=== PATIENT | male | born 1975 | race Caucasian/White ===

== ENCOUNTER 2021-04-16 10:27 | Outpatient (CLI) | payer SELFPAY ==
--- NOTE | 2021-04-16 10:00 | CT_ITS ---
WS: [id number] CT ABDOMEN AND PELVIS WITH CONTRAST HISTORY: K46.0 - Unspecified abdominal hernia with obstruction, with LEFT lower quadrant pain and bad nausea. TECHNIQUE: Imaging performed of the abdomen and pelvis with IV contrast. Single phase imaging of the abdomen. Coronal and sagittal reformats are submitted. All CT scans at [facility] use at least one of these dose optimization techniques: automated exposure control; mA and/or kV adjustment per patient size (includes targeted exams where dose is matched to clinical indication); or iterativ e reconstruction. IV CONTRAST: Omnipaque 300; 95 mL IV. Oral contrast: Yes. DLP: 1183.34 mGycm COMPARISON: None available. Lower thorax: Lung bases are clear. Heart is normal size. Small hiatal hernia. Liver/biliary system: Normal size with no intrahepatic dilatation. Gallbladder: Normal. No gallstones or wall thickening. No pericholecystic fluid. Pancreas: Normal size pancreas and pancreatic duct. No adjacent inflammation. Spleen: Normal size spleen. No mass or infarct. Adrenal glands: Normal. Right kidney: Subcentimeter cortical low-attenuation masses are too small to characterize. No obstruc tion. Left kidney: Too small to characterize subcortical hypodensities. Aorta: Normal. A few splenic varices are noted. Lymphadenopathy: None. Free fluid: None. GI tract: Prior appendectomy. There is moderate fecal retention and increased air throughout the colo n. Short segment transition site in the distal descending colon with adjacent inflammation and asymme tric wall thickening. Moderate narrowing of the lumen. Due to the shape of this lesion neoplasm needs to be excluded. There are adjacent diverticula also. No perforation. This abnormality extends over a segment 3.4 cm. There are adjacent more distal diverticula in the sigmoid. Abdominal wall: Small umbilical hernia. Pelvis: Surgical clips at the inguinal region from prior hernia repair. Prostate gland central calcif ications. Bones: Unremarkable. CT/CT abdomen pelvis w con* [id number] IMPRESSION: 1. Short segment distal colon luminal narrowing. Moderate pericolonic inflamma tion and a few diverticula. Based upon the shape of the lesion this may be a ne oplastic apple core lesion. There are adjacent diverticula. Focal diverticuliti s not excluded. Recommend colonoscopy. No perforation or abscess. 2. Additional diverticulosis in the sigmoid colon. 3. No perforation.
[2021-04-16] MEDS: iohexol 300 mg/mL 50 mL Btl PO (10:48)
[2021-04-16] MEDS: iohexol 300 mg/mL 100 mL Btl IV (12:15)
== END 2021-04-16 10:28 | disposition home or self-care (01) ==
PROVIDERS: PCP Nurse Practitioner Family; Visit Provider Nurse Practitioner Family
DX: K46.0 Unspecified abdominal hernia with obstruction, without gangrene (principal); K57.30 Diverticulosis of large intestine without perforation or abscess without bleeding
CPT/HCPCS: 74177; Q9967

== ENCOUNTER 2021-04-16 15:27 | Observation (INO) | payer SELFPAY ==
[2021-04-16 16:13] VITALS: BMI 24.3
[2021-04-16 17:56] VITALS: RESP 18
[2021-04-16] MEDS: morphine 4 mg/mL SDV 1 mL 2 MG IVP (17:56)
[2021-04-16] MEDS: ciprofloxacin 400 MG/200 ML PREMIX 200 MG IV (18:04)
[2021-04-16] MEDS: sodium chloride 0.9% 1,000 ML 125 ML IV (18:04)
[2021-04-16 18:20] VITALS: BP 119/69; PULSE 96; RESP 18; TEMP 37.1; O2SAT 92
[2021-04-16 18:33] LABS: Basophils % 0.2 %; Eosinophils # 0.2 10^3/uL (0.0-0.8); Eosinophils % 1.2 %; Hematocrit 50.4 % (42.0-52.0); Hemoglobin 16.6 g/dL (11.7-16.6); Lymphocytes # 1.1 10^3/uL (0.8-4.8); Lymphocytes % 6.1 %; Mean Corpuscular HGB Conc 32.9 g/dL (30.0-36.0); Mean Corpuscular Hemoglobin 30.7 pg (28.0-34.0); Mean Corpuscular Volume 93.2 fL (80-94); Mean Platelet Volume 9.7 fL (7.4-10.4); Monocytes % 5.7 %; Neutrophils # 15.56 10^3/uL (1.8-7.7); Neutrophils % 86.2 %; Nucleated Red Blood Cells % 0 %; Platelet Count 184 10^3/cmm (130-400); Red Blood Count 5.41 10^6/uL (4.1-5.3); Red Cell Distribution Width 13.6 % (12.1-15.1); White Blood Count 18.1 10^3/uL (4.0-10.0)
[2021-04-16 18:57] LABS: Alanine Aminotransferase 21 U/L (0-41); Alkaline Phosphatase 69 IU/L (40-130); Anion Gap 13.3 (5-19); Aspartate Amino Transferase 17 U/L (0-40); Blood Urea Nitrogen 13 mg/dL (6-20); Calcium 8.5 mg/dL (8.5-10.5); Carbon Dioxide 24 mmol/L (22-29); Chloride 99 mmol/L (98-107); Glomerular Filtration Rate 90.4 mL/min (90-130); Glucose 108 mg/dL (65-115); Osmolality Calculated 275 mOsm/kg (285-295); Potassium 4.3 mmol/L (3.5-5.1); Sodium 132 mmol/L (136-145); Total Bilirubin 0.7 mg/dL (0.15-1.2)
[2021-04-16 20:13] LABS: Carcinoembryonic Antigen 1.6 ng/mL (0.0-4.7)
[2021-04-16 20:35] VITALS: BP 143/76; PULSE 101; RESP 17; TEMP 37.2; O2SAT 93
[2021-04-16] MEDS: metroNIDAZOLE IV 500 MG/100 ML PREMIX 100 MG IV (20:46)
[2021-04-16] MEDS: magnesium citrate Btl 296 mL PO (20:47)
[2021-04-16] MEDS: scopolamine 1.5 Patch 1 PATCH TRANSDERMA (20:55)
[2021-04-17] VITALS (10 sets, daily range): BP systolic 93–125; BP diastolic 59–82; PULSE 88–98; RESP 14–18; TEMP 36.3–37.2; O2SAT 92–96
[2021-04-17] MEDS: metroNIDAZOLE IV 500 MG/100 ML PREMIX 100 MG IV ×3 (03:49→20:25)
[2021-04-17] MEDS: sodium chloride 0.9% 1,000 ML 125 ML IV ×3 (03:49→23:53)
[2021-04-17] MEDS: ciprofloxacin 400 MG/200 ML PREMIX 200 MG IV ×2 (04:46→16:52)
--- NOTE | 2021-04-17 09:30 | P.ANESASSM_ITS ---
Pre-Anesthetic Assessment Pre-Anesthetic Assessment: Height/Weight: Height 1.85 m Weight 83.733 kg Temp Pulse Resp BP Pulse Ox 99.0 F 96 14 93/59 93 04/17/21 08:22 04/17/21 08:22 04/17/21 08:22 04/17/21 08:22 04/17/21 08:22 Preop Diagnosis: abdominal pain Proposed Procedure: Operation Date: 04/17/21 11:00 Proposed Procedures p FLEX Sigmoidoscopy(Not Applicable) - John Avendano MD Was Beta Heri taken within 24 hours: N/A Was Clonidine taken within 24 hours: N/A Last Intake: 00:00 Exam: Pre-Anes Outpt Exam: alert, oriented x 3, clear to auscultation bilaterally and regular rate & rhythm Airway: Submandibular: WNL Cervical ROM: WNL MP: 2 History/ROS: No significant history except as noted and No significant c omplaints Pulmonary: Pulmonary: None reported CV/HEM: CV/HEM: None reported : : None reported Hepatic: Hepatic: None reported GI: Comments: abdominal pain Metabolic: Metabolic: None reported Musc/skel: Musc/skel: None reported Neuropsych: Neuropsych: None reported Anesthetic Plan: ASA status: 2 Anesthesia: MAC Risk of > 500 ml blood loss (7ml/kg in children): No Meds/Allergies 2 Current Medications: Current Medications Generic Name Dose Route Start Last Admin Trade Name Freq PRN Reason Stop Dose Admin Sodium Chloride 1,000 mls @ 125 m ls/hr 04/16/21 16:45 04/17/21 03:49 Sodium Chloride 0.9% IV 125 mls/hr .Q8H MARIEL Administration Ciprofloxacin/Dext jin 400 mg in 200 mls @ 200 mls/hr 04/16/21 16:45 04/17/21 07:13 Cipro IV Infused Q12H MARIEL Infusion Protocol Metronidazole 500 mg in 100 mls @ 100 mls/hr 04/16/21 16:45 04/17/21 04:47 Flagyl Iv IV Infused Q8H MARIEL Infusion Protocol Morphine Sulfate 2 mg 04/16/21 16:33 04/16/21 17:56 Morphine 4 Mg/Ml Sdv 1 Ml IVP 2 mg Q1H PRN Administration SEVERE PAIN PFSH Anesthesia PFSH: Medical History Acute diverticulitis of intestine Surgical History History of right inguinal hernia repair Hx of appendectomy Social History Smoking and tobacco status: current every day smoker Lives independently: Yes Data Anesthesia CBC & Chem 7: 04/16/21 18:20 04/16/21 18:20 Other Labs: Laboratory Results - last 48 hr 04/16/21 04/16/21 18:20 18:20 WBC 18.1 H RBC 5.41 H Hgb 16.6 Hct 50.4 MCV 93.2 MCH 30.7 MCHC 32.9 RDW 13.6 Plt Count 184 MPV 9.7 Neut % (Auto) 86.2 Lymph % (Auto) 6.1 Toole % (Auto) 5.7 Eos % (Auto) 1.2 Baso % (Auto) 0.2 Neut # (Auto) 15.56 H Lymph # (Auto) 1.1 Toole # (Auto) 1.0 H Eos # (Auto) 0.2 Baso # (Auto) 0.0 Nucleated RBC % (auto) 0 Nucleated RBCs # 0.0 Sodium 132 L Potassium 4.3 Chloride 99 Carbon Dioxide 24 Anion Gap 13.3 BUN 13 Creatinine 0.9 GFR Calculation 90.4 Glucose 108 Calculated Osmolality 275 L Calcium 8.5 Total Bilirubin 0.7 AST 17 ALT 21 Alkaline Phosphatase 69 Total Protein 7.0 Albumin 4.0 Globulin 3.0 Carcinoembryonic Ag 1.6 Cardiac Studies: No Data to Display
[2021-04-17] MEDS: sodium chloride 0.9% 1,000 ML 30 ML IV (09:45)
--- NOTE | 2021-04-17 14:52 | ANE.PACU2 ---
Inpatient post-anesthesia follow up: Airway intact: Yes Vital signs: Temperature 97.3 F Pulse Rate 92 Respiratory Rate 16 Blood Pressure 109/64 Pulse Oximetry 95 Oxygen Delivery Me thod Room Air Oxygen Flow Rate Fraction of Inspir ed Oxygen Hydration adequate: Yes Nausea and vomiting: No Pain level: 1 Mental status: Baseline
[2021-04-18 02:55] LABS: Basophils % 0.5 %; Eosinophils # 0.3 10^3/uL (0.0-0.8); Eosinophils % 4.2 %; Hematocrit 49.5 % (42.0-52.0); Lymphocytes # 1.2 10^3/uL (0.8-4.8); Lymphocytes % 15.6 %; Mean Corpuscular HGB Conc 32.3 g/dL (30.0-36.0); Mean Corpuscular Hemoglobin 30.8 pg (28.0-34.0); Mean Corpuscular Volume 95.2 fL (80-94); Mean Platelet Volume 9.7 fL (7.4-10.4); Monocytes # 0.6 10^3/uL (0.2-0.9); Monocytes % 7.4 %; Neutrophils % 71.4 %; Nucleated Red Blood Cells % 0 %; Platelet Count 163 10^3/cmm (130-400); Red Cell Distribution Width 13.5 % (12.1-15.1); White Blood Count 7.4 10^3/uL (4.0-10.0)
[2021-04-18] MEDS: metroNIDAZOLE IV 500 MG/100 ML PREMIX 100 MG IV (03:10)
[2021-04-18 03:16] LABS: Anion Gap 10.4 (5-19); Blood Urea Nitrogen 9 mg/dL (6-20); Calcium 8.3 mg/dL (8.5-10.5); Carbon Dioxide 25 mmol/L (22-29); Chloride 108 mmol/L (98-107); Glomerular Filtration Rate 90.4 mL/min (90-130); Glucose 88 mg/dL (65-115); Osmolality Calculated 286 mOsm/kg (285-295); Potassium 4.4 mmol/L (3.5-5.1); Sodium 139 mmol/L (136-145)
[2021-04-18 04:00] VITALS: BP 116/87; PULSE 90; RESP 14; TEMP 37.1; O2SAT 96
[2021-04-18] MEDS: ciprofloxacin 400 MG/200 ML PREMIX 200 MG IV (04:55)
[2021-04-18 07:44] VITALS: BP 124/84; PULSE 95; RESP 18; TEMP 36.6; O2SAT 96
[2021-04-18 12:40] VITALS: BP 105/69; PULSE 95; RESP 18; TEMP 36.7; O2SAT 96
--- NOTE | 2021-04-18 13:58 | P.SS_ITS ---
Short Stay Summary Providers Date of Admit/Discharge: 04/18/21 Attending Provider: John Avendano MD Primary Care Provider: AVINASH Araujo Chief Complaint: diverticulities and chronic mass HPI History of Present Illness Chief Complaint: Feeling better History of present illness: Tomás Brice is a 45 year old male presents to my office originally with left lower quadrant abdominal pain and was found to have on the CT scan of the abdomen pelvis concerning for focal inflammation related to diverticulitis yet there has been a growth in the form of apple core concerning for neoplastic lesion. Patient was sent for direct admission to the hospital and being observed for IV antimicrobial therapy with the plan to p erform an endoscopy to rule out malignant process and to obtain biopsies. Review of Systems General: Reports: 10 or more systems reviewed and unremarkable except in HPI and below Home Meds/Allergies Home Medications and Allergies Home Medications Medication Instructions Recorded Confirmed Type cetirizine 10 mg PO DAILY 04/17/21 04/17/21 History Allergies Allergy/AdvReac Type Severity Reaction Status Date / Time Penicillins Allergy UNSURE Verified 04/18/21 13:59 PFSH Acute PFSH: Medical History Acute diverticulitis of intestine Surgical History History of right inguinal hernia repair Hx of appendectomy Social History Smoking and tobacco status: current every day smoker Lives independently: Yes Vitals/I&O/Wt Last Vital Signs Temp 98.1 F 04/18/21 12:40 Pulse 95 04/18/21 12:40 Resp 18 04/18/21 12:40 BP 105/69 04/18/21 12:40 Pulse Ox 96 04/18/21 12:40 04/17/21 04/18/21 04/18/21 22:59 06:59 14:59 Intake Total 1300 / 4340 1650 / 5990 120 / 120 Balance 1300 / 4340 1650 / 5990 120 / 120 Weight last 48 hrs Weight 184 lb 9.6 oz Physical Exam Narrative: EXAM NARRATIVE: Patient is conscious alert oriented X3 BMI 24.4 Head and neck examination PERRLA no masses no cervical lymphadenopathy no jaundice Abdomen nontender nondistended soft no organomegaly guarding or rigidity/no signs of peritonitis Extremities no cyanosis no clubbing no edema Hospital Course Hospital Course This is a pleasant 45 years old gentleman admitted for observation for IV antibiotics and IV fluid hydration with repeated physical examination and undergone colonoscopy that showed no obvious growth or narrowing of the sigmoid colon likely the patient does have inflammatory process including the wall of the sigmoid colon and there is no evidence of neoplastic process at this point. Patient has been tolerating p.o. intake and having good urine output with normal ization of blood work. Discharge Summary 45 years old gentleman responding to conservative measures for acute diverticulitis with concern of apple core lesion on the sigmoid colon per CT scan. Patient met the appropriate criteria for safe discharge with the plan to follow-up at my office with repeat CT scan of the abdomen pelvis with oral and IV contrast. And will be discharged on oral antibiotics in the form of Cipro and Flagyl. Patient's education was given to the patient. Patient was educated also about return to the ER for any worsening symptoms. In the form of nausea vomiting fever chills or worsening abdominal pain. Diagnoses at Discharge Discharge Diagnosis (1) Acute diverticulitis of intestine: Status: Acute Discharge Plan Discharge Patient Disposition: Home Condition: Stable Prescriptions: New Cipro 500 mg tablet 500 mg PO Q12H Qty: 20 RF: 0 Flagyl 500 mg tablet 500 mg PO Q8H Qty: 30 RF: 0 Continued cetirizine 10 mg tablet 10 mg PO DAILY RF: 0 Discharge Orders: Discharge Order (Routine); Ordered 04/18/21 Ordered By: John Avendano Referrals: John Avendano MD [Physician] - ([facility]ctors office will call you for follow-up appointment. If you have not heard from the office in 72 hours call [phone] for follow-up appointment. Patient will require a CT scan of the abdomen and pelvis with oral and IV contrast at the follow-up appointment in 2 to 3-weeks) Discharge Diet: As Directed Discharge Activity: Increase activity as tolerated Patient Instructions: Ciprofloxacin (By mouth), Metronidazole (By mouth), Soft Diet (DC), GI Discharge Instructions, Opioid Safety Activity Restrictions/Additional Instructions: Plan of care; Review the pathology with the patient Return to primary care provider Avoid constipation Avoid seeds nuts and popcorn High Fiber diet; As Fiber softens the stool and helps prevent constipation. It also can help decrease pressure in the colon and help prevent flare-ups of diverticulitis. High-fiber foods include: ? Beans and legumes ? Bran, whole wheat bread and whole grain cereals such as oatmeal ? Brown and wild rice ? Fruits such as apples, bananas and pears ? Vegetables such as broccoli, carrots, corn and squash ? Whole wheat pasta The target is to eat 25 to 30 grams of fiber daily. Drink at least 8 cups of fluid daily. Fluid will help soften your stool.Exercise also promotes bowel movement and helps prevent constipation. Weight management Assurance and education All questions have been answered Attestations Medical Necessity Statement*: Observation for IV antibiotics and pain control Time Spent in Patient Care*: greater than 30 min Specific Discharge Activities: Specific discharge activities: educating patient and educating and/or supporting family/caregiver Status at Discharge: Cognitive status at discharge: cognitively intact , Behavioral status at discharge: cooperative , Functional status at discharge: independent ambulation Overall status at discharge: patient is progressing back to baseline Quality Metrics Clinical Quality Measures: During this hospital stay, did patient experience: None Coding Level of Care Code Acute [employer] Maker for Elian Larsen Diagnoses Acute diverticulitis of intestine K57.92
--- NOTE | 2021-04-18 15:05 | PC.NURSE ---
patient and significant other verbalize understanding of discharge instructions, home medications, diet orders, and follow ups. all current questions answered. pt refused to wait for a wheelchair, and walked down with significant other.
[2021-04-18 15:10] VITALS: BP 105/69; PULSE 95; RESP 18; TEMP 36.7; O2SAT 96
--- NOTE | 2021-04-18 15:18 | PC.RESP ---
Smoking Cessation information sent to patient.
== END 2021-04-18 15:11 | disposition home or self-care (01) ==
PROVIDERS: Admitting Provider Surgery; PCP Nurse Practitioner Family; Visit Provider Surgery
PROC: 0DJD8ZZ Inspection of Lower Intestinal Tract, Via Natural or Artificial Opening Endoscopic (ICD-10-PCS; CPT 45378; principal; 2021-04-17 11:00)
DX: K57.92 Diverticulitis of intestine, part unspecified, without perforation or abscess without bleeding (principal); F17.210 Nicotine dependence, cigarettes, uncomplicated
CPT/HCPCS: 36415; 45378; 80048; 80053; 82378; 85025; G0378; G0379; J0744; J2250; J2270; J2704; J7030; S0030

== ENCOUNTER 2021-05-12 11:56 | Outpatient (CLI) | payer SELFPAY ==
--- NOTE | 2021-05-12 13:30 | CT_ITS ---
WS: [id number] CT ABDOMEN AND PELVIS WITH CONTRAST HISTORY: K57.92 - Diverticulitis of intestine, part unspecified, follow-up diverticulitis. TECHNIQUE: Imaging performed of the abdomen and pelvis with IV contrast. Single phase imaging of the abdomen. Coronal and sagittal reformats are submitted. All CT scans at [facility] use at least one of these dose optimization techniques: automated exposure control; mA and/or kV adjustment per patient size (includes targeted exams where dose is matched to clinical indication); or iterativ e reconstruction. IV CONTRAST: Omnipaque 300; 95 mL IV. Oral contrast: Yes. DLP: 1165.47 mGycm COMPARISON: 04/16/2021 Lower thorax: Linear subsegmental atelectasis at the lingula. Heart is normal size. No hiatal hernia. Liver/biliary system: Normal size with no intrahepatic dilatation. Gallbladder: Normal. No gallstones or wall thickening. No pericholecystic fluid. Pancreas: Normal size pancreas and pancreatic duct. No adjacent inflammation. Spleen: Normal size spleen. No mass or infarct. Adrenal glands: Normal. Right kidney: Small subcentimeter cortical hypodensities. No obstruction of the kidney. Left kidney: Subcentimeter cortical-based hypodensities. No obstruction of the kidney. Aorta: Normal. Lymphadenopathy: None. Free fluid: None. GI tract: Prior appendectomy. Constipation. Short segment wall thickening with inflammatory changes i nvolving the descending colon and the sigmoid has significantly improved since the prior study. This is probably an area of diverticulitis and possible spasm. The lumen was narrowed. There is still asym metric wall thickening and a few diverticula but there has been a moderate improvement. Abdominal wall: Fat containing umbilical hernia. Pelvis: No free fluid or adenopathy within the pelvis. Bones: Unremarkable. CT/CT abdomen pelvis w con* [id number] IMPRESSION: 1. Moderate improvement in the asymmetric wall thickening and inflammatory cory nges involving the descending colon as described on 04/16/2021. There are numerou s diverticula present in this region of wall thickening. Due to the significant improvement this was probably all related to severe episode of acute diverticu litis. There is still some persistent wall thickening involving the descending and sigmoid colon. 2. No perforation. 3. Mild constipation.
[2021-05-12] MEDS: iohexol 300 mg/mL 50 mL Btl PO (13:34)
[2021-05-12] MEDS: iohexol 300 mg/mL 100 mL Btl IV (13:58)
== END 2021-05-12 11:57 | disposition home or self-care (01) ==
LOC: RADWPI 11:58
PROVIDERS: PCP Nurse Practitioner Family; Visit Provider Surgery
DX: K57.92 Diverticulitis of intestine, part unspecified, without perforation or abscess without bleeding (principal); K59.00 Constipation, unspecified
CPT/HCPCS: 74177; Q9967

== ENCOUNTER 2021-05-23 11:08 | Outpatient (CLI) | payer SELFPAY ==
[2021-05-23 11:50] LABS: Basophils # 0.1 10^3/uL (0.0-0.1); Basophils % 0.7 %; Eosinophils # 0.5 10^3/uL (0.0-0.8); Eosinophils % 6.1 %; Hematocrit 53.1 % (42.0-52.0); Hemoglobin 17.5 g/dL (11.7-16.6); Lymphocytes # 1.1 10^3/uL (0.8-4.8); Lymphocytes % 12.6 %; Mean Corpuscular Hemoglobin 30.8 pg (28.0-34.0); Mean Corpuscular Volume 93.5 fL (80-94); Mean Platelet Volume 10.2 fL (7.4-10.4); Monocytes # 0.6 10^3/uL (0.2-0.9); Monocytes % 6.7 %; Neutrophils # 6.13 10^3/uL (1.8-7.7); Neutrophils % 73.7 %; Nucleated Red Blood Cells % 0 %; Platelet Count 187 10^3/cmm (130-400); Red Blood Count 5.68 10^6/uL (4.1-5.3); Red Cell Distribution Width 13.2 % (12.1-15.1); White Blood Count 8.3 10^3/uL (4.0-10.0)
[2021-05-23 12:29] LABS: C Reactive Protein 7.4 mg/L (0.0-4.9)
== END 2021-05-23 11:09 | disposition home or self-care (01) ==
PROVIDERS: PCP Nurse Practitioner Family; Visit Provider Nurse Practitioner Family
DX: K57.92 Diverticulitis of intestine, part unspecified, without perforation or abscess without bleeding (principal)
CPT/HCPCS: 36415; 85025; 86140

== ENCOUNTER 2021-12-25 11:39 | Outpatient (CLI) | payer SELFPAY ==
--- NOTE | 2021-12-25 11:44 | XR_ITS ---
WS: [id number] KUB [id number] REASON FOR EXAM: K57.92 - Diverticulitis of intestine, part unspecified, w... FINDINGS: No free air or retroperitoneal air. There is mild gaseous distention of multiple small bowel loops. Colon is gas filled without significa nt distention. There is a transition, at the splenic flexure, from a normal colon haustral pattern in the right and transverse colons to the left colon with a moderately thickened fold pattern. No other significant abdominal or pelvic abnormality is identified. XR/XR KUB [id number] IMPRESSION: Multiple gas-filled small bowel loops, nonspecific. Abnormal left colon with mural edema from inflammation or less likely ischemia. This is a pattern of colitis, not diverticulitis.
== END 2021-12-25 11:40 | disposition home or self-care (01) ==
LOC: RAD 11:44
PROVIDERS: PCP Nurse Practitioner Family; Visit Provider Nurse Practitioner Family
DX: K57.92 Diverticulitis of intestine, part unspecified, without perforation or abscess without bleeding (principal)
CPT/HCPCS: 74018

== ENCOUNTER → 2023-07-23 09:21 | Outpatient (BNVA) | payer SELFPAY | PROVIDERS: PCP Nurse Practitioner Family; Visit Provider Nurse Practitioner Family | DX: Z20.822 Contact with and (suspected) exposure to COVID-19; R68.89 Other general symptoms and signs | CPT/HCPCS: 87400; 87426 ==

== ENCOUNTER → 2024-12-22 09:26 | Outpatient (BNVA) | payer SELFPAY | PROVIDERS: PCP Nurse Practitioner Family; Visit Provider Nurse Practitioner Family | DX: J06.9 Acute upper respiratory infection, unspecified (principal) | CPT/HCPCS: 87400 ==

== ENCOUNTER → 2025-06-26 11:14 | Outpatient (BNVA) | payer SELFPAY | PROVIDERS: PCP Nurse Practitioner Family; Visit Provider Nurse Practitioner Family | DX: F41.9 Anxiety disorder, unspecified (principal); R53.83 Other fatigue; I10 Essential (primary) hypertension | CPT/HCPCS: 80053; 80061; 82306; 82607; 83550; 84403; 84439; 84443; 85025 ==